=== PATIENT | female | born 1985 | race Caucasian/White ===

== ENCOUNTER 2016-11-18 11:01 | Inpatient (IN) | payer OTHER ==
[~2016-11-18] VITALS: Ht 162.6 cm; Wt 80.4 kg
[2016-11-18] MEDS ORDERED: PREN-3 PO (11:09)
[2016-11-18 11:33] VITALS: BP 119/74
[2016-11-18] MEDS ORDERED: LACTATED RINGERS 1,000 ML IV SCH (11:45)
[2016-11-18] MEDS ORDERED: OXYTOCIN 30U/ 0.9% NaCL 500ML 500 ML IV ONE (11:45)
[2016-11-18] MEDS ORDERED: TERBUTALINE 1 MG/ML, 1ML IVPush PRN ×2 (12:00)
[2016-11-18] MEDS ORDERED: ONDANSETRON 2MG/ML, 2ML IVPush PRN (12:00)
[2016-11-18] MEDS ORDERED: FENTANYL PF 100 MCG/2ML IV PRN (12:00)
[2016-11-18] MEDS ORDERED: FENTANYL PF 100 MCG/2ML IVPush PRN (12:00)
[2016-11-18] MEDS ORDERED: TERBUTALINE 1 MG/ML, 1ML SQ PRN (12:00)
[2016-11-18 12:26] LABS: HEMATOCRIT 41.6 % (34.6-47.8); HEMOGLOBIN 14.1 g/dL (11.7-16.4); WHITE BLOOD COUNT 8.9 x10^3/uL (3.4-10)
[2016-11-18] MEDS ORDERED: OXYTOCIN 30U/ 0.9% NaCL 500ML 500 ML ONE ×2 (12:50→18:59)
[2016-11-18] MEDS ORDERED: NEWBORN KIT ONE (12:50)
[2016-11-18] MEDS ORDERED: LIDOCAINE 1%, 20ML ONE (17:14)
[2016-11-18] MEDS ORDERED: IBUPROFEN 600 MG TABLET ONE (17:41)
[2016-11-18] MEDS ORDERED: OXYcodone/APAP 5/325MG TABLET ONE (17:42)
[2016-11-18] MEDS: IBUPROFEN 600 MG TABLET PO PRN (17:47)
[2016-11-18] MEDS: OXYcodone/APAP 5/325MG TABLET PO PRN ×2 (17:47→22:12)
[2016-11-18] MEDS ORDERED: METHYLERGONOVINE 0.2 MG/ML IM PRN (18:00)
[2016-11-18] MEDS ORDERED: DOCUSATE 100 MG CAPSULE PO PRN (18:00)
[2016-11-18] MEDS ORDERED: MEASLES,MUMPS&RUBELLA VACC/PF 0.5 ML SQ PRN (18:00)
[2016-11-18] MEDS ORDERED: MISOPROSTOL 200 MCG TABLET PR PRN (18:00)
[2016-11-18] MEDS ORDERED: RHOGAM FROM BLOOD BANK 1 NOTE EA IM/IV ONE (18:00)
[2016-11-18] MEDS ORDERED: CARBOPROST TROMETHAMINE 250 MCG/ML, 1ML IM PRN (18:00)
[2016-11-18] MEDS ORDERED: OXYcodone/APAP 5/325MG TABLET PO PRN (18:00)
[2016-11-18] MEDS ORDERED: ACETAMINOPHEN 325 MG TABLET PO PRN (18:00)
[2016-11-18] MEDS ORDERED: DIPH,PERTUSS(ACELL),TET VAC/PF NC IM-VACC PRN (18:00)
[2016-11-18] MEDS: OXYTOCIN 30U/ 0.9% NaCL 500ML 500 ML IV SCH (19:04)
[2016-11-18 19:40] VITALS: BP 127/66
[2016-11-18 21:00] VITALS: BP 120/67
[2016-11-19 00:31] VITALS: BP 108/62
[2016-11-19] MEDS: OXYTOCIN 30U/ 0.9% NaCL 500ML 500 ML IV SCH (03:38)
[2016-11-19] MEDS: IBUPROFEN 600 MG TABLET PO PRN ×2 (03:39→14:44)
[2016-11-19 03:41] VITALS: BP 105/59
[2016-11-19 06:13] LABS: HEMATOCRIT 39.5 % (34.6-47.8); HEMOGLOBIN 13.4 g/dL (11.7-16.4); WHITE BLOOD COUNT 10.7 x10^3/uL (3.4-10)
[2016-11-19 07:15] VITALS: BP 103/59
[2016-11-19] MEDS ORDERED: PRENATAL VIT/IRON/FA 1 EACH TABLET ONE (07:21)
[2016-11-19] MEDS: OXYcodone/APAP 5/325MG TABLET PO PRN ×3 (08:01→18:26)
[2016-11-19] MEDS ORDERED: PRENATAL VIT/IRON/FA 1 EACH TABLET PO SCH (09:00)
[2016-11-19 16:19] VITALS: BP 93/55
== END 2016-11-19 19:49 | disposition home or self-care (01) | DRG 775 ==
LOC: LDOP 11:01 → LDIP 11:56 → 2NW 19:26
PROVIDERS: ADMIT Obstetrics & Gynecology Maternal & Fetal Medicine; ATTEND Obstetrics & Gynecology Maternal & Fetal Medicine
PROC: 10E0XZZ Delivery of Products of Conception, External Approach (ICD-10-PCS; principal; 2016-11-18)
PROC: 3E0234Z Introduction of Serum, Toxoid and Vaccine into Muscle, Percutaneous Approach (ICD-10-PCS; 2016-11-18)
DX: O34.219 Maternal care for unspecified type scar from previous cesarean delivery (principal); O69.81X0 Labor and delivery complicated by cord around neck, without compression, not applicable or unspecified; Z23 Encounter for immunization; Z37.0 Single live birth; Z3A.39 39 weeks gestation of pregnancy
CPT/HCPCS: 36415; 85025; 86850; 86900; 90715; J2590; J7120